=== PATIENT | male | born 1945 | race Caucasian/White ===

== ENCOUNTER 2021-01-21 09:42 | Day surgery (SDC) | payer MEDICARE, OTHER ==
[~2021-01-21] VITALS: Ht 182.9 cm; Wt 88.0 kg
[~2021-01-21 09:42] MED LIST: ABILIFY MYCITE5 M2 PO; ANTIDEPRESSANT; ASPI81CH PO; ATOR10 PO; CELE200 PO; CHOL10002 PO; CYCL10 PO; DICL75ER PO; ESCI20 PO; FISH1000 PO; FLUT.05NI; GABA300 PO; Itraconazole100 MG PO; NAPR500 PO; PRAM.5 PO; Prinivil10 MG PO; Ranitidine HCl150 M1 PO; TRAM50 PO
--- NOTE | 2021-01-21 14:08 | NUR ---
PT SITTING UP AND EATING WITH NO COMPLAINTS. HR INCREASED TO 130'S-160'S IN AFIB. B/P ELEVATED 140'S/120'S. DR MULLER NOTIFIED AND ORDERS RECEIVED. CARDIZEM 5 MG GIVEN IVP, WILL CONTINUE TO MONITOR.
--- NOTE | 2021-01-21 14:36 | NUR ---
PT TRANSFERRED TO PCU ROOM 1, FULL REPORT GIVEN TO KAYLIE PRYOR.
--- NOTE | 2021-01-21 14:39 | NUR ---
PT RATE IN THE 70'S-90'S PRIOR TO TRANSFER. NURSE KAYLIE AWARE OF IV CARDIZEM THAT WAS GIVEN PRIOR TO TRANSFER. PT RATE 80'S UPON ARRIVAL TO PCU. B/P ALSO DOWN TO 130'S/90'S PRIOR TO TRANSFER
--- NOTE | 2021-01-21 15:26 | NUR ---
Pt returned from imaging after 2 view xray was done post device implantation. Pt denies pain. Scant amount of serosanginous drainage noted on non-adherent dressing under transparent tegederm left upper chest wall; demarkated with ink over the dressing. No active drainage noted. Pt was ambulatory to the bathroom to void. Ice pack and 2 pound weight to surgical site and sling also in place left arm per written orders from Dr. cortez.
--- NOTE | 2021-01-21 15:50 | NUR ---
Noted persistent elevated blood pressure. Pt takes lisinopril daily, states did not take this morning. Will administer now and keep bedtime daily dosing.
--- NOTE | 2021-01-21 18:14 | NUR ---
left chest wall surgical site remains without active drainage, bleeding or increased swelling. Pt denies pain needing medications. States he might need something orally for pain at bedtime. At this time, he is keeping the 2# and ice pack on it and this seems to be giving him good pain control. Ate dinner with a good appetite. Heart rate controlled atrial fibrillation, blood pressure trending down slowly.
--- NOTE | 2021-01-22 00:41 | NUR ---
0000 IV PATENT, FLUSHED WITH 10 MLS NS.
--- NOTE | 2021-01-22 02:52 | NUR ---
8503 TELE CALLS TO NOTIFY THIS RN OF PT BRADYING INTO 50'S WITH WHAT APPEARS TO BE PACER ACTIVITY. PT APPEARS TO NOW HAVE PACEMAKER SPIKES OCCASIONALLY WHEN HR IS IN 40'S. PER DOCUMENTATION OF PACER/DEFIB, LOW RATE SET AT 40 BPM.
--- NOTE | 2021-01-22 02:53 | NUR ---
PT UPDATE PT AWAKE, DENIES PAIN AT THIS TIME, NO APPARENT DISTRESS, AFIB, DAVID 47-70 BPM. OCCASIONAL PACER ACTIVITY.
[2021-01-22 04:36] LABS: Anion Gap 3 mmol/L (6-16); Blood Urea Nitrogen 19 mg/dL (8-24); Bun/Creatinine Ratio 20.1 (12.0-20.0); CO2, Blood 27 mmol/L (21-32); Calcium, Blood 8.6 mg/dL (8.5-10.1); Chloride, Blood 112 mmol/L (98-108); Creatinine, Blood 0.95 mg/dL (0.60-1.20); Glomerular Filtration Rate >60 (60-); Glucose, Blood 103 mg/dL (70-99); Sodium, Blood 142 mmol/L (136-145)
--- NOTE | 2021-01-22 04:47 | NUR ---
SHIFT SUMMARY PT AOX4 T/O SHIFT. BREATHING EVEN AND UNLABORED. HR AFIB 70'S-80'S AT START OF SHIFT, DOWN TO 50'S 60'S GRADUALLY AND THEN LOWER INTO HIGH 40'S. PT AOX4. HR SPIKES TO 140'S WHEN PT UP TO BATHROOM. SCANT DRAINAGE FROM PACER SITE INTO DRESSING. BARELY OUTSIDE DRAWN BORDER FROM DAY SHIFT 01/21/21. PT MEDICATED FOR PAIN PER ORDERS, GOOD PAIN CONTROL WITH ORDERED TYL #3. PT DENIES CP OTHER THAN PAIN AT PACER/DEFIB SITE. DID NOT TOLERATE TO WEAR 2 LB BAG T/O SHIFT WHILE RESTING IN BED. TOLERATED ICE PERSISTENTLY TO SITE. IV PATENT AND SALINE LOCKED.
--- NOTE | 2021-01-22 08:54 | NUR ---
Device interrogation completed, report sent remotely.
[2021-01-22] MEDS ORDERED: DILT60ER PO (09:41)
--- NOTE | 2021-01-22 10:56 | NUR ---
Pt's arrived, and discharge instructions were reviewed with her and with the patient. Copy of the same was provided to the patient. He was instructed to not take NSAIDS until it can be clarified with his physician if he should be taking them. Pt declined wheelchair transport, states that eh can walk just fine. He was wearing his black sling on the left arm, and dressing was clean dry and intact. [employer] accompanyied the pt with his ambulating to private vehicle driven by his . Pt was given specific instructions regarding activity limitations, including no driving for 2 weeks, no lifting arm above shoulder for 28 days, and keeping the dressing completely clean, dry and intact until his wound check appointment on January 28.
== END 2021-01-22 10:47 | disposition home or self-care (01) ==
LOC: MHTC 09:42 → PCU 14:35 → MHTC 01-22 10:47
PROVIDERS: Internal Medicine Cardiovascular Disease
DX: I49.5 Sick sinus syndrome (principal); I48.19 Other persistent atrial fibrillation; Z88.8 Allergy status to other drugs, medicaments and biological substances
CPT/HCPCS: 33249; 36415; 71046; 80048; 93005; 93010; 96365; 96366; 99152; 99153; A9270; C1722; C1895; G0378; J0690; J1580; J1644; J2250; J3010; J7030; J7040; Q9967

== ENCOUNTER 2021-01-28 14:50 | Inpatient (IN) | payer MEDICARE, OTHER ==
[~2021-01-28] VITALS: Ht 182.9 cm; Wt 83.3 kg
[~2021-01-28 14:50] MED LIST changes: -ASPI81CH PO; +DILT60 PO
[2021-01-28 15:30] LABS: BASOPHILS ABSOLUTE AUTO 0.05 K/mm3 (0.00-0.23); BASOPHILS PERCENT AUTO 1 % (0-2); EOSINOPHILS ABSOLUTE AUTO 0.14 K/mm3 (0.00-0.68); EOSINOPHILS PERCENT AUTO 2 % (0-6); Hematocrit 40.3 % (37.0-53.0); Hemoglobin 13.5 g/dL (13.5-17.5); IMMATURE GRAN ABSOLUTE AUTO 0.01 K/mm3 (0.00-0.10); IMMATURE GRAN PERCENT AUTO 0 % (0-1); LYMPHOCYTES ABSOLUTE AUTO 2.52 K/mm3 (0.84-5.20); LYMPHOCYTES PERCENT AUTO 37 % (21-46); MONOCYTES ABSOLUTE AUTO 0.55 K/mm3 (0.16-1.47); MONOCYTES PERCENT AUTO 8 % (4-13); Mean Corpuscular HGB 30.8 pg (26.0-34.0); Mean Corpuscular HGB Conc 33.5 g/dL (31.5-36.5); Mean Corpuscular Volume 92 fL (80-100); NEUTROPHILS ABSOLUTE AUTO 3.52 K/mm3 (1.96-9.15); NEUTROPHILS PERCENT AUTO 52 % (41-73); Platelet Count 236 K/mm3 (150-400); RDW Coefficient Variation 13.4 % (11.7-14.2); RDW Standard Deviation 45.9 fL (35.1-46.3); Red Blood Cell Count 4.38 M/mm3 (4.30-5.90); White Blood Cell Count 6.79 K/mm3 (4.00-11.30)
[2021-01-28] MEDS ORDERED: LOSA50 PO (15:51)
[2021-01-28 15:57] LABS: Alanine Aminotransfer (ALT/SGP 32 U/L (12-78); Albumin, Blood 3.5 g/dL (3.4-5.0); Albumin/Globulin Ratio 1.2 (0.8-1.8); Alk Phos 44 U/L (50-136); Anion Gap 4 mmol/L (6-16); Aspartate Aminotrans (AST/SGOT 23 U/L (12-37); Bilirubin, Total 0.4 mg/dL (0.1-1.0); Blood Urea Nitrogen 19 mg/dL (8-24); Bun/Creatinine Ratio 21.5 (12.0-20.0); CO2, Blood 27 mmol/L (21-32); Calcium, Blood 8.7 mg/dL (8.5-10.1); Chloride, Blood 112 mmol/L (98-108); Creatinine, Blood 0.88 mg/dL (0.60-1.20); Globulin, Blood 2.9 g/dL (2.2-4.0); Glomerular Filtration Rate >60 (60-); Glucose, Blood 106 mg/dL (70-99); Potassium, Blood 3.6 mmol/L (3.5-5.5); Sodium, Blood 143 mmol/L (136-145); Total Protein, Blood 6.4 g/dL (6.4-8.2); Troponin I 0.218 ng/mL (0.000-0.040)
[2021-01-28] MEDS ORDERED: OMEP20ER PO (17:12)
[2021-01-28] MEDS ORDERED: ASPIR 8181 M1 PO (17:15)
[2021-01-29 03:55] LABS: BASOPHILS ABSOLUTE AUTO 0.05 K/mm3 (0.00-0.23); BASOPHILS PERCENT AUTO 1 % (0-2); EOSINOPHILS ABSOLUTE AUTO 0.13 K/mm3 (0.00-0.68); EOSINOPHILS PERCENT AUTO 2 % (0-6); Hematocrit 40.2 % (37.0-53.0); Hemoglobin 13.5 g/dL (13.5-17.5); IMMATURE GRAN ABSOLUTE AUTO 0.03 K/mm3 (0.00-0.10); IMMATURE GRAN PERCENT AUTO 0 % (0-1); LYMPHOCYTES ABSOLUTE AUTO 2.45 K/mm3 (0.84-5.20); LYMPHOCYTES PERCENT AUTO 34 % (21-46); MONOCYTES ABSOLUTE AUTO 0.54 K/mm3 (0.16-1.47); MONOCYTES PERCENT AUTO 7 % (4-13); Mean Corpuscular HGB Conc 33.6 g/dL (31.5-36.5); Mean Corpuscular Volume 92 fL (80-100); Mean Platelet Volume 8.8 fL (9.1-12.4); NEUTROPHILS ABSOLUTE AUTO 4.11 K/mm3 (1.96-9.15); NEUTROPHILS PERCENT AUTO 56 % (41-73); Platelet Count 228 K/mm3 (150-400); RDW Coefficient Variation 13.2 % (11.7-14.2); RDW Standard Deviation 45.6 fL (35.1-46.3); Red Blood Cell Count 4.35 M/mm3 (4.30-5.90); White Blood Cell Count 7.31 K/mm3 (4.00-11.30)
[2021-01-29 04:27] LABS: Anion Gap 4 mmol/L (6-16); Blood Urea Nitrogen 19 mg/dL (8-24); Bun/Creatinine Ratio 22.1 (12.0-20.0); CO2, Blood 27 mmol/L (21-32); Calcium, Blood 8.7 mg/dL (8.5-10.1); Chloride, Blood 112 mmol/L (98-108); Creatinine, Blood 0.86 mg/dL (0.60-1.20); Glomerular Filtration Rate >60 (60-); Glucose, Blood 99 mg/dL (70-99); Magnesium, Blood 2.1 mg/dL (1.6-2.4); Potassium, Blood 3.9 mmol/L (3.5-5.5); Sodium, Blood 143 mmol/L (136-145)
--- NOTE | 2021-01-29 06:04 | NUR ---
ADMIT AND SHIFT SUMMARY THE PT ARRIVED TO PCU AT APPROX 0120. PT AMBULATED FROM ED STRETCHER TO PCU BED INDEPENDENTLY. PT A&OX4. SP02>92% ON RA. TELEMETRY READ AFIB, HR 100'S-120'S. BP ELEVATED. CALL PLACED TO MD NOVOA. MD NOVOA W/ ORDERS FOR ONE TIME PO METOPROLOL. PT USED URINAL TO VOID. PT C/O OF BACK PAIN, MEDICATED W/ TYLENOL PER EMAR AND PLACED A HEATING PAD W/ SUCCESSFUL RELIEF. PT SLEPT T/O REMAINDER OF NIGHT. CALL LIGHT IN REACH. WILL GIVE REPORT TO ONCOMING NURSE.
--- NOTE | 2021-01-29 18:06 | NUR ---
PT HYPERTENSIVE IN AM AND TACHYCARDIC WHEN AMBULATING OR BEARING DOWN (RATE IN 170'S-180'S); DR. MIRELES NOTIFIED AT 0915; ORDERS PROVIDED FOR RX TO TREAT CONTINUING TACHYCARDIA; CALLED AT 0938 AND VISITED BEDSIDE AT 1438; PT HAD ANGIO PROCEDURE FROM 1421 TO 1515; VS TAKEN PER DR. NEWMAN'S ORDER; TR BAND ASSESSED PER ORDER AND WNL EACH TIME; VOLUME FOLLOWS: 10ML AT 1508, 8ML AT 1630, 6ML AT 1703, 4ML AT 1723, 2ML AT 1744, AND 0ML AT 1800; VSS; PT DENIES ADDITIONAL CONCERNS AT THIS TIME
--- NOTE | 2021-01-29 19:49 | NUR ---
TR BAND REMOVED AT THIS TIME. NO BRUISING, BLEEDING, OR HEMATOMA. OPSITE DRESSING APPLIED. ARM BOARD IN PLACE.
[2021-01-30 04:04] LABS: Hematocrit 40.4 % (37.0-53.0); Hemoglobin 13.6 g/dL (13.5-17.5); Mean Corpuscular HGB 31.1 pg (26.0-34.0); Mean Corpuscular HGB Conc 33.7 g/dL (31.5-36.5); Mean Corpuscular Volume 92 fL (80-100); Mean Platelet Volume 9.2 fL (9.1-12.4); Platelet Count 242 K/mm3 (150-400); RDW Coefficient Variation 13.2 % (11.7-14.2); RDW Standard Deviation 44.9 fL (35.1-46.3); Red Blood Cell Count 4.38 M/mm3 (4.30-5.90); White Blood Cell Count 6.42 K/mm3 (4.00-11.30)
[2021-01-30 04:23] LABS: Anion Gap 5 mmol/L (6-16); Blood Urea Nitrogen 24 mg/dL (8-24); Bun/Creatinine Ratio 28.2 (12.0-20.0); CO2, Blood 26 mmol/L (21-32); Calcium, Blood 8.8 mg/dL (8.5-10.1); Chloride, Blood 110 mmol/L (98-108); Creatinine, Blood 0.85 mg/dL (0.60-1.20); Glomerular Filtration Rate >60 (60-); Glucose, Blood 95 mg/dL (70-99); Sodium, Blood 141 mmol/L (136-145)
--- NOTE | 2021-01-30 05:42 | NUR ---
SHIFT SUMMARY NO ACUTE CHANGES THIS SHIFT. PT A&OX4. SP02>92% ON RA. TELEMETRY READS AFIB HR 70'S-90'S. PT HAS R RADIAL SITE, TR BAND REMOVED THIS SHIFT, SEE PREVIOUS NOTE. NO BRUISING, HEMATOMA. ARM BOARD IN PLACE. PT DENIED PAIN. PT USED URINAL TO VOID, INDEPENDENT IN ROOM. SLEPT T/O NIGHT. CALL LIGHT IN REACH. WILL GIVE REPORT TO ONCOMING NURSE.
[2021-01-30] MEDS ORDERED: IRBE150 PO (11:10)
[2021-01-30] MEDS ORDERED: DILT60 PO (11:12)
[2021-01-30] MEDS ORDERED: METO100ER PO (11:14)
[2021-01-30] MEDS ORDERED: XARELTO20 MG PO (11:14)
--- NOTE | 2021-01-30 14:43 | NUR ---
PT AMBULATED TWICE AROUND UNIT WITH RN AND NO ASSISTIVE EQUIPMENT AT 1052; PT'S HEART RATE DID NOT ACCELERATE ABOVE 110 BPM DURING AMBULATION; PT VSS; R RADIAL SITE WDL; AT 1305 PIV REMOVED AND TELEMETRY REMOVED; DISCHARGE PERFORMED BY ROYA DIAZ AND SCRIPTS FAXED TO [facility]; PT'S WAS CALLED TO NOTIFY OF DISCHARGE; DISCHARGE TEACHING PERFORMED BY ELA JOY RN; PT REQUESTED/RECEIVED ADDITIONAL INFORMATION CONCERNING RX REGIMEN; PT ASSISTED TO CHANGE INTO STREET CLOTHES AND LEFT UNIT AT 1421 VIA WHEELCHAIR ACCOMPANIED BY TECH WITH NO MONITORING, IV INFUSIONS, OR OXYGEN THERAPY; PT DENIES ADDITIONAL CONCERNS AT THIS TIME
== END 2021-01-30 14:23 | disposition home or self-care (01) | DRG 287 ==
LOC: ER 14:50 → ERHOLD 14:51 → PCU 14:51
PROVIDERS: Emergency Medicine; Internal Medicine Cardiovascular Disease; ADMIT Family Medicine
PROC: 4A023N7 Measurement of Cardiac Sampling and Pressure, Left Heart, Percutaneous Approach (ICD-10-PCS; principal; 2021-01-30)
PROC: B2111ZZ Fluoroscopy of Multiple Coronary Arteries using Low Osmolar Contrast (ICD-10-PCS; 2021-01-30)
DX: I48.21 Permanent atrial fibrillation (principal); I50.22 Chronic systolic (congestive) heart failure; I11.0 Hypertensive heart disease with heart failure; Z71.6 Tobacco abuse counseling; Z95.810 Presence of automatic (implantable) cardiac defibrillator; K21.9 Gastro-esophageal reflux disease without esophagitis; Z85.46 Personal history of malignant neoplasm of prostate; G47.33 Obstructive sleep apnea (adult) (pediatric); E78.5 Hyperlipidemia, unspecified; F17.210 Nicotine dependence, cigarettes, uncomplicated; Z98.890 Other specified postprocedural states; Z79.899 Other long term (current) drug therapy
CPT/HCPCS: 36415; 80048; 80053; 83735; 84484; 85025; 85027; 85347; 93005; 93010; 93454; 96372; 96372-59; 96374; 99152; 99153; 99284-25; A9270; C1769; C1894; G0378; J1644; J2250; J3010; J7030; J7050; Q9967

== ENCOUNTER → 2021-11-22 | Outpatient (CLI) | payer MEDICARE, OTHER ==
[~2021-11-22] MED LIST changes: +ASPIR 8181 M1 PO; +IRBE150 PO; +LOSA50 PO; +METO100ER PO; +OMEP20ER PO; +XARELTO20 MG PO
[2021-11-23 09:58] LABS: Stool Occult Bld Immuno 1 Negative (NEGATIVE)
== END | disposition home or self-care (01) ==
LOC: LAB 14:10 → LAB SHORT 14:10
PROVIDERS: Family Medicine
DX: D50.9 Iron deficiency anemia, unspecified (principal); R19.7 Diarrhea, unspecified
CPT/HCPCS: 82274; 87338

== ENCOUNTER → 2021-12-09 | Outpatient (CLI) | payer MEDICARE, OTHER ==
[2021-12-09 15:04] LABS: Campylobacter Sp Not Detected (NOT DETECT); E. Coli O157 Not Detected (NOT DETECT); Enteroaggregative E. coli-EAEC Not Detected (NOT DETECT); Enteropathogenic E. coli-EPEC Not Detected (NOT DETECT); Enterotoxigenic E. coli-ETEC Not Detected (NOT DETECT); Plesiomonas Shigelloides Not Detected (NOT DETECT); Salmonella Sp Not Detected (NOT DETECT); Shiga Toxin-prod E. coli-STEC Not Detected (NOT DETECT); Shigella/Enteroin E. coli-EIEC Not Detected (NOT DETECT); Vibrio Cholerae Not Detected (NOT DETECT); Vibrio Sp Not Detected (NOT DETECT); Yersinia Enterocolitica Not Detected (NOT DETECT)
[2021-12-09 15:05] LABS: Adenovirus F 40/41 Not Detected (NOT DETECT); Astrovirus Not Detected (NOT DETECT); Cryptosporidium Not Detected (NOT DETECT); Cyclospora Cayetanensis Not Detected (NOT DETECT); Entamoeba Histolytica Not Detected (NOT DETECT); Giardia Lamblia Not Detected (NOT DETECT); Norovirus GI/GII Not Detected (NOT DETECT); Rotavirus A Not Detected (NOT DETECT); Sapovirus Not Detected (NOT DETECT)
== END | disposition home or self-care (01) ==
LOC: LAB SHORT 10:18 → LAB 10:18
PROVIDERS: Nurse Practitioner Family
DX: R19.7 Diarrhea, unspecified (principal)
CPT/HCPCS: 87324; 87507

== ENCOUNTER 2022-11-16 14:50 | Emergency (ER) | payer MEDICARE, OTHER ==
[~2022-11-16] VITALS: Ht 182.9 cm; Wt 102.1 kg
[2022-11-16 15:39] LABS: BASOPHILS ABSOLUTE AUTO 0.04 K/mm3 (0.00-0.23); BASOPHILS PERCENT AUTO 1 % (0-2); EOSINOPHILS ABSOLUTE AUTO 0.12 K/mm3 (0.00-0.68); EOSINOPHILS PERCENT AUTO 2 % (0-6); Hemoglobin 14.1 g/dL (13.5-17.5); IMMATURE GRAN ABSOLUTE AUTO 0.02 K/mm3 (0.00-0.10); IMMATURE GRAN PERCENT AUTO 0 % (0-1); LYMPHOCYTES ABSOLUTE AUTO 1.91 K/mm3 (0.84-5.20); LYMPHOCYTES PERCENT AUTO 24 % (21-46); MONOCYTES ABSOLUTE AUTO 0.61 K/mm3 (0.16-1.47); MONOCYTES PERCENT AUTO 8 % (4-13); Mean Corpuscular HGB 32.3 pg (26.0-34.0); Mean Corpuscular HGB Conc 34.4 g/dL (31.5-36.5); Mean Corpuscular Volume 94 fL (80-100); Mean Platelet Volume 8.8 fL (9.1-12.4); NEUTROPHILS ABSOLUTE AUTO 5.24 K/mm3 (1.96-9.15); NEUTROPHILS PERCENT AUTO 66 % (41-73); Platelet Count 241 K/mm3 (150-400); RDW Coefficient Variation 12.9 % (11.7-14.2); Red Blood Cell Count 4.36 M/mm3 (4.30-5.90); White Blood Cell Count 7.94 K/mm3 (4.00-11.30)
[2022-11-16 16:00] LABS: Albumin, Blood 3.8 g/dL (3.4-5.0); Albumin/Globulin Ratio 1.1 (0.8-1.8); Bilirubin, Total 0.5 mg/dL (0.1-1.0); Bun/Creatinine Ratio 17.4 (12.0-20.0); Creatinine, Blood 0.98 mg/dL (0.60-1.20); Globulin, Blood 3.4 g/dL (2.2-4.0); Potassium, Blood 4.1 mmol/L (3.5-5.5); Total Protein, Blood 7.2 g/dL (6.4-8.2)
[2022-11-16] MEDS ORDERED: ALBU90OI INH (19:04)
[2022-11-16] MEDS ORDERED: LASIX20 M2 PO (19:04)
[2022-11-16 19:14] VITALS: BP 155/89
== END 2022-11-16 19:16 | disposition home or self-care (01) ==
LOC: ER 14:50
PROVIDERS: Physician Assistant
DX: I50.9 Heart failure, unspecified (principal); Z79.899 Other long term (current) drug therapy; Z87.891 Personal history of nicotine dependence
CPT/HCPCS: 71046; 80053; 83880; 84484; 85025; 93005; 93010; 99284-25

== ENCOUNTER → 2024-01-11 | Outpatient (CLI) | payer MEDICARE, OTHER ==
[~2024-01-11] MED LIST changes: +ALBU90OI INH; +LASIX20 M2 PO
[2024-01-11 12:03] LABS: Source, Urine Clean Catch
[2024-01-11 12:25] LABS: Bacteria Rare /hpf; Red Blood Cells, Urine 50-100 /hpf (0-2); Squamous Epithelial Cells Few /hpf (Few); White Blood Cells, Urine 50-100 /hpf (0-5)
== END | disposition home or self-care (01) ==
LOC: LAB SHORT 12:01 → LAB 12:01
PROVIDERS: Chiropractor
DX: R31.9 Hematuria, unspecified (principal)
CPT/HCPCS: 81015; 87086

== ENCOUNTER → 2024-10-01 | Outpatient (CLI) | payer MEDICARE, OTHER ==
[2024-10-01 08:55] LABS: BASOPHILS ABSOLUTE AUTO 0.04 K/mm3 (0.00-0.23); BASOPHILS PERCENT AUTO 1 % (0-2); EOSINOPHILS ABSOLUTE AUTO 0.16 K/mm3 (0.00-0.68); EOSINOPHILS PERCENT AUTO 2 % (0-6); Hematocrit 35.7 % (37.0-53.0); Hemoglobin 11.8 g/dL (13.5-17.5); IMMATURE GRAN ABSOLUTE AUTO 0.03 K/mm3 (0.00-0.10); IMMATURE GRAN PERCENT AUTO 0 % (0-1); LYMPHOCYTES ABSOLUTE AUTO 1.84 K/mm3 (0.84-5.20); LYMPHOCYTES PERCENT AUTO 26 % (21-46); MONOCYTES ABSOLUTE AUTO 0.65 K/mm3 (0.16-1.47); MONOCYTES PERCENT AUTO 9 % (4-13); Mean Corpuscular HGB 32.3 pg (26.0-34.0); Mean Corpuscular HGB Conc 33.1 g/dL (31.5-36.5); Mean Corpuscular Volume 98 fL (80-100); Mean Platelet Volume 8.6 fL (9.1-12.4); NEUTROPHILS ABSOLUTE AUTO 4.37 K/mm3 (1.96-9.15); NEUTROPHILS PERCENT AUTO 62 % (41-73); Platelet Count 227 K/mm3 (150-400); RDW Coefficient Variation 13.8 % (11.7-14.2); RDW Standard Deviation 50.1 fL (35.1-46.3); Red Blood Cell Count 3.65 M/mm3 (4.30-5.90); White Blood Cell Count 7.09 K/mm3 (4.00-11.30)
[2024-10-01 09:02] LABS: Calcium, Blood 8.8 mg/dL (8.5-10.1); Creatinine, Blood 1.25 mg/dL (0.60-1.20); Potassium, Blood 4.5 mmol/L (3.5-5.5)
== END | disposition home or self-care (01) ==
LOC: LAB 08:52 → LAB SHORT 08:52
PROVIDERS: Family Medicine
DX: R49.9 Unspecified voice and resonance disorder (principal)
CPT/HCPCS: 80048; 85025

== ENCOUNTER → 2025-03-02 | Outpatient (CLI) | payer MEDICARE, OTHER ==
[2025-03-02 12:34] LABS: BASOPHILS ABSOLUTE AUTO 0.04 K/mm3 (0.00-0.23); BASOPHILS PERCENT AUTO 1 % (0-2); EOSINOPHILS ABSOLUTE AUTO 0.15 K/mm3 (0.00-0.68); EOSINOPHILS PERCENT AUTO 2 % (0-6); Hematocrit 37.9 % (37.0-53.0); Hemoglobin 12.9 g/dL (13.5-17.5); Mean Corpuscular HGB Conc 34.0 g/dL (31.5-36.5); Mean Corpuscular Volume 96 fL (80-100); NRBC ABSOLUTE 0.00 K/mm3 (0.00-0.02); NRBC Auto 0.0 /100 WBC (0.0-0.2); Platelet Count 265 K/mm3 (150-400); RDW Coefficient Variation 13.7 % (11.7-14.2); RDW Standard Deviation 48.7 fL (35.1-46.3)
[2025-03-02 12:35] LABS: Alanine Aminotransfer (ALT/SGP 37.0 U/L (12-78); Albumin, Blood 3.8 g/dL (3.4-5.0); Albumin/Globulin Ratio 1.2 (0.8-1.8); Anion Gap 10.0 mmol/L (3-11); Aspartate Aminotrans (AST/SGOT 24.0 U/L (12-37); Bilirubin, Total 0.3 mg/dL (0.1-1.0); Blood Urea Nitrogen 18.0 mg/dL (8-24); CO2, Blood 31.0 mmol/L (21-32); Calcium, Blood 9.4 mg/dL (8.5-10.1); Chloride, Blood 104.0 mmol/L (98-108); Creatinine, Blood 1.19 mg/dL (0.60-1.20); Globulin, Blood 3.3 g/dL (2.2-4.0); Glucose, Blood 116.0 mg/dL (70-99); Potassium, Blood 4.2 mmol/L (3.5-5.5); Sodium, Blood 141.0 mmol/L (136-145); Total Protein, Blood 7.1 g/dL (6.4-8.2)
[2025-03-02 12:37] LABS: IMMATURE GRAN ABSOLUTE AUTO 0.03 K/mm3 (0.00-0.10); IMMATURE GRAN PERCENT AUTO 0 % (0-1); LYMPHOCYTES ABSOLUTE AUTO 3.58 K/mm3 (0.84-5.20); LYMPHOCYTES PERCENT AUTO 48 % (21-46); MONOCYTES ABSOLUTE AUTO 0.46 K/mm3 (0.16-1.47); MONOCYTES PERCENT AUTO 6 % (4-13); NEUTROPHILS ABSOLUTE AUTO 3.17 K/mm3 (1.96-9.15); NEUTROPHILS PERCENT AUTO 43 % (41-73)
== END | disposition home or self-care (01) ==
LOC: LAB 12:17 → LAB SHORT 12:17
PROVIDERS: Physician Assistant
DX: R42 Dizziness and giddiness (principal)
CPT/HCPCS: 80053; 85025

== ENCOUNTER 2025-04-02 13:12 | Emergency (ER) | payer MEDICARE, OTHER ==
[~2025-04-02] VITALS: Ht 182.9 cm; Wt 96.6 kg
[2025-04-02] MEDS ORDERED: AMLO5 PO (13:51)
[2025-04-02] MEDS ORDERED: AMIODARONE HCL100 M3 PO (13:51)
[2025-04-02 13:52] LABS: BASOPHILS ABSOLUTE AUTO 0.02 K/mm3 (0.00-0.23); BASOPHILS PERCENT AUTO 0 % (0-2); EOSINOPHILS ABSOLUTE AUTO 0.10 K/mm3 (0.00-0.68); EOSINOPHILS PERCENT AUTO 1 % (0-6); Hematocrit 33.1 % (37.0-53.0); Hemoglobin 11.3 g/dL (13.5-17.5); IMMATURE GRAN ABSOLUTE AUTO 0.03 K/mm3 (0.00-0.10); IMMATURE GRAN PERCENT AUTO 0 % (0-1); LYMPHOCYTES ABSOLUTE AUTO 3.22 K/mm3 (0.84-5.20); LYMPHOCYTES PERCENT AUTO 42 % (21-46); MONOCYTES ABSOLUTE AUTO 0.66 K/mm3 (0.16-1.47); MONOCYTES PERCENT AUTO 9 % (4-13); Mean Corpuscular HGB Conc 34.1 g/dL (31.5-36.5); Mean Corpuscular Volume 96 fL (80-100); NEUTROPHILS ABSOLUTE AUTO 3.61 K/mm3 (1.96-9.15); NEUTROPHILS PERCENT AUTO 47 % (41-73); NRBC ABSOLUTE 0.00 K/mm3 (0.00-0.02); NRBC Auto 0.0 /100 WBC (0.0-0.2); Platelet Count 248 K/mm3 (150-400); RDW Coefficient Variation 13.8 % (11.7-14.2); RDW Standard Deviation 48.3 fL (35.1-46.3)
[2025-04-02] MEDS ORDERED: CARV25 PO (13:52)
[2025-04-02 14:13] LABS: Alanine Aminotransfer (ALT/SGP 28.0 U/L (12-78); Albumin, Blood 3.1 g/dL (3.4-5.0); Albumin/Globulin Ratio 1.0 (0.8-1.8); Anion Gap 6.0 mmol/L (3-11); Aspartate Aminotrans (AST/SGOT 21.0 U/L (12-37); Bilirubin, Total 0.3 mg/dL (0.1-1.0); Blood Urea Nitrogen 30.0 mg/dL (8-24); CO2, Blood 26.0 mmol/L (21-32); Calcium, Blood 8.8 mg/dL (8.5-10.1); Chloride, Blood 107.0 mmol/L (98-108); Creatinine, Blood 1.6 mg/dL (0.60-1.20); Globulin, Blood 3.1 g/dL (2.2-4.0); Glucose, Blood 107.0 mg/dL (70-99); Potassium, Blood 4.4 mmol/L (3.5-5.5); Sodium, Blood 135.0 mmol/L (136-145); Total Protein, Blood 6.2 g/dL (6.4-8.2)
[2025-04-02 14:15] VITALS: BP 106/73
== END 2025-04-02 14:51 | disposition home or self-care (01) ==
LOC: ER 13:12
PROVIDERS: Student in an Organized Health Care Education/Training Program
DX: I95.9 Hypotension, unspecified (principal); R79.89 Other specified abnormal findings of blood chemistry; Z95.0 Presence of cardiac pacemaker; Z88.0 Allergy status to penicillin
CPT/HCPCS: 80053; 85025; 93005; 93010; 99284-25

== ENCOUNTER 2025-05-20 11:49 | Day surgery (SDC) | payer MEDICARE, OTHER | END 2025-05-20 23:00 | disposition home or self-care (01) | LOC: MHTC 11:49 | DX: I48.91 Unspecified atrial fibrillation (principal); I12.9 Hypertensive chronic kidney disease with stage 1 through stage 4 chronic kidney disease, or unspecified chronic kidney disease; N18.30 Chronic kidney disease, stage 3 unspecified; G47.33 Obstructive sleep apnea (adult) (pediatric); E78.5 Hyperlipidemia, unspecified; K21.9 Gastro-esophageal reflux disease without esophagitis; Z87.891 Personal history of nicotine dependence; Z88.8 Allergy status to other drugs, medicaments and biological substances; Z79.01 Long term (current) use of anticoagulants; Z79.899 Other long term (current) drug therapy ==

== ENCOUNTER → 2025-05-26 | Outpatient (CLI) | payer MEDICARE, OTHER ==
[~2025-05-26] MED LIST changes: +AMIODARONE HCL100 M3 PO; +AMLO5 PO; +CARV25 PO; +Flonase 0.05% N16 GM; +JARDIANCE10 MG PO; +Norco 10-325 T1 EACH PO; +POTA10T PO
[2025-05-26 11:32] LABS: Alanine Aminotransfer (ALT/SGP 23.0 U/L (12-78); Albumin, Blood 3.4 g/dL (3.4-5.0); Albumin/Globulin Ratio 1.1 (0.8-1.8); Anion Gap 11.0 mmol/L (3-11); Aspartate Aminotrans (AST/SGOT 20.0 U/L (12-37); Bilirubin, Total 0.4 mg/dL (0.1-1.0); Blood Urea Nitrogen 17.0 mg/dL (8-24); CO2, Blood 29.0 mmol/L (21-32); Calcium, Blood 8.9 mg/dL (8.5-10.1); Chloride, Blood 103.0 mmol/L (98-108); Creatinine, Blood 1.32 mg/dL (0.60-1.20); Globulin, Blood 3.2 g/dL (2.2-4.0); Glucose, Blood 113.0 mg/dL (70-99); Potassium, Blood 4.4 mmol/L (3.5-5.5); Sodium, Blood 139.0 mmol/L (136-145); Total Protein, Blood 6.6 g/dL (6.4-8.2); Uric Acid, Blood 4.5 mg/dL (3.5-7.2)
[2025-05-26 11:37] LABS: BASOPHILS ABSOLUTE AUTO 0.04 K/mm3 (0.00-0.23); BASOPHILS PERCENT AUTO 1 % (0-2); EOSINOPHILS ABSOLUTE AUTO 0.13 K/mm3 (0.00-0.68); EOSINOPHILS PERCENT AUTO 2 % (0-6); Hematocrit 33.9 % (37.0-53.0); Hemoglobin 11.5 g/dL (13.5-17.5); Mean Corpuscular HGB Conc 33.9 g/dL (31.5-36.5); Mean Corpuscular Volume 99 fL (80-100); NRBC ABSOLUTE 0.00 K/mm3 (0.00-0.02); NRBC Auto 0.0 /100 WBC (0.0-0.2); Platelet Count 270 K/mm3 (150-400); RDW Coefficient Variation 14.1 % (11.7-14.2); RDW Standard Deviation 51.5 fL (35.1-46.3)
[2025-05-26 11:48] LABS: IMMATURE GRAN ABSOLUTE AUTO 0.04 K/mm3 (0.00-0.10); IMMATURE GRAN PERCENT AUTO 1 % (0-1); LYMPHOCYTES ABSOLUTE AUTO 2.80 K/mm3 (0.84-5.20); LYMPHOCYTES PERCENT AUTO 41 % (21-46); MONOCYTES ABSOLUTE AUTO 0.52 K/mm3 (0.16-1.47); MONOCYTES PERCENT AUTO 8 % (4-13); NEUTROPHILS ABSOLUTE AUTO 3.39 K/mm3 (1.96-9.15); NEUTROPHILS PERCENT AUTO 49 % (41-73)
== END ==
LOC: LAB SHORT 11:16 → LAB 11:16
DX: M25.472 Effusion, left ankle (principal)
CPT/HCPCS: 80053; 84550; 85025